=== PATIENT | female | born 1970 | race Caucasian/White ===

== ENCOUNTER 2019-11-08 15:15 | Observation (INO) ==
[2019-11-08] MEDS ORDERED: 0.9 % Sodium Chloride 1,000 ML IVC ONE (15:26)
[2019-11-08] MEDS ORDERED: Ondansetron 4 MG/2 ML VIAL IVP ONE ×2 (15:26→17:19)
[2019-11-08] MEDS ORDERED: *HR* HYDROmorphone (PF) 1 MG/ML SYRINGE IVP STA (15:33)
[2019-11-08 15:43] LABS: Bacteria,Urine Few per hpf (None-Few); Bilirubin,Urine Negative (Negative); Blood,Urine Negative (Negative); Clarity,Urine Clear (Clear); Color,Urine Light-Yellow (Yellow); Glucose,Urine (UA) Normal (Normal); Ketones,Urine Negative (Negative); Leukocyte Esterase,Urine Trace (Negative); Mucus,Urine Few per lpf (None-Few); Nitrite,Urine Negative (Negative); Protein,Urine Negative (Neg-Trace); Specific Gravity,Urine 1.021 (1.010-1.025); Squamous Epithelial Cell,Urine Moderate per hpf (None-Few); Urobilinogen,Urine Normal (Normal); WBC,Urine 0-3 per hpf (0-3)
[2019-11-08 15:53] LABS: Basophils # 0.1 K/mcL (0.0-0.2); Basophils % 0.6 %; Eosinophils # 0.2 K/mcL (0.0-0.6); Eosinophils % 1.5 %; Hematocrit 46.4 % (35.3-44.9); Hemoglobin 14.8 g/dL (11.5-15.4); Immature Granulocytes % 0.3 % (0-4); Lymphocytes % 27.7 %; Mean Corpuscular HGB Conc 31.9 g/dL (31.6-35.5); Mean Corpuscular Hemoglobin 29.1 pg (28.0-33.3); Mean Corpuscular Volume 91.3 fL (83.0-100.0); Mean Platelet Volume 10.3 fL (9.4-12.4); Monocytes # 0.7 K/mcL (0.0-1.3); Monocytes % 6.8 %; Neutrophils # 6.9 K/mcL (1.6-8.9); Platelet Count 222 K/mcL (140-400); Red Blood Count 5.08 M/mcL (3.82-4.97); Red Cell Distribution Width 13.2 % (11.5-14.5); Segmented Neutrophils % 63.1 %; White Blood Count 10.9 K/mcL (4.3-11.1)
[2019-11-08 16:31] LABS: Alanine Aminotransferase 27 Units/L (7-52); Albumin 4.1 g/dL (3.5-5.7); Albumin/Globulin Ratio 1.1 (1.1-2.2); Alkaline Phosphatase 85 Units/L (34-104); Aspartate Amino Transferase 28 Units/L (13-39); BUN/Creatinine Ratio 14 (6-26); Bilirubin,Direct 0.2 mg/dL (0.0-0.2); Bilirubin,Indirect 0.7 mg/dL (0.0-1.0); Bilirubin,Total 0.9 mg/dL (0.3-1.0); Blood Urea Nitrogen 9 mg/dL (6-20); Calcium 9.4 mg/dL (8.6-10.3); Carbon Dioxide 27 mEq/L (23-29); Chloride 102 mEq/L (98-107); Globulin 3.6 g/dL (2.4-3.5); Glucose 114 mg/dL (70-105); Lipase 10 Units/L (11-82); Osmolality,Calculated 282 (280-300); Potassium 4.4 mEq/L (3.5-5.1); Sodium 136 mEq/L (136-145); Total Protein 7.7 g/dL (6.4-8.9); eGFR For African Americans > 60 (> 60); eGFR For Non-African Americans > 60 (> 60)
[2019-11-08] MEDS ORDERED: CefOXitin 1,000 MG VIAL ONE (17:15)
[2019-11-08] MEDS ORDERED: *HR* Promethazine 25 MG/ML VIAL IVP PRN (17:19)
[2019-11-08] MEDS ORDERED: *HR* Meperidine 25 MG/ML SYRINGE IVP PRN (17:19)
[2019-11-08] MEDS ORDERED: *HR* OxyCODONE Immed Rel 5 MG TABLET PO PRN (17:19)
[2019-11-08] MEDS ORDERED: Acetaminophen IV 1,000 MG/100 ML BAG ONE (17:39)
[2019-11-08] MEDS ORDERED: Ondansetron 4 MG/2 ML VIAL ONE (17:57)
[2019-11-08] MEDS ORDERED: *HR* Succinylcholine 200 MG/10 ML VIAL IVP ONE (17:57)
[2019-11-08] MEDS ORDERED: Lidocaine -MPF 2% 2 ML VIAL ONE (17:57)
[2019-11-08] MEDS ORDERED: Dexamethasone 4 MG/ML VIAL ONE (17:57)
[2019-11-08] MEDS ORDERED: *HR* Rocuronium Bromide 50 MG/5 ML VIAL ONE (17:57)
[2019-11-08] MEDS ORDERED: *HR* FentaNYL (PF) 100 MCG/2 ML VIAL ONE (17:58)
[2019-11-08] MEDS ORDERED: *HR* Propofol 200 MG/20 ML VIAL IVP ONE (17:58)
[2019-11-08] MEDS ORDERED: cefOXitin 1,000 MG, 0.9 % Sodium Chloride 1,000 ML IR ONE (18:00)
[2019-11-08] MEDS ORDERED: CefOXitin 2,000 MG VIAL ONE (18:09)
[2019-11-08] MEDS: *HR* HYDROmorphone PF 0.5 MG/0.5 ML SYRINGE IVP PRN ×3 (19:21→19:43)
[2019-11-08] MEDS ORDERED: 0.9 % Sodium Chloride 1,000 ML IVC SCH (20:10)
[2019-11-08] MEDS ORDERED: *HR* OxyCODONE/APAP 5/325 TABLET PO PRN (20:10)
[2019-11-08] MEDS ORDERED: *HR* Metoprolol 5 MG/5 ML VIAL IVP PRN (20:10)
[2019-11-08] MEDS ORDERED: Ondansetron 4 MG/2 ML VIAL IVP PRN (20:10)
[2019-11-09] MEDS: cefOXitin 2,000 MG in Water for inj. (sterile) 20 ML IVP SCH ×2 (00:02→09:01)
[2019-11-09 06:48] VITALS: BP 111/78
[2019-11-09] MEDS ORDERED: *HR* Metformin 500 MG TABLET PO SCH (09:00)
== END 2019-11-09 09:47 | disposition home or self-care (01) ==
LOC: EMEROOARM 15:15 → 3BNU 15:15
PROVIDERS: ADMIT Surgery; ATTEND Surgery

== ENCOUNTER 2020-06-04 06:17 | Observation (INO) ==
[~2020-06-04 06:17] MED LIST: Ringers Solution, Lactated 1,000 ML IVC SCH
[2020-06-04] MEDS ORDERED: CeFAZolin Syr 3,000MG/30 ML 3,000 MG/30 ML SYRINGE IVPB ONE (06:40)
[2020-06-04] MEDS ORDERED: Ondansetron 4 MG/2 ML VIAL IVP PRN ×2 (07:00→15:02)
[2020-06-04] MEDS ORDERED: *HR* HYDROcodone/Acet 5/325 mg TABLET PO PRN ×2 (07:00→15:02)
[2020-06-04] MEDS ORDERED: Lidocaine -MPF 2% 2 ML VIAL ONE (07:47)
[2020-06-04] MEDS ORDERED: Ondansetron 4 MG/2 ML VIAL ONE (07:47)
[2020-06-04] MEDS ORDERED: Dexamethasone 4 MG/ML VIAL ONE (07:47)
[2020-06-04] MEDS ORDERED: *HR* Succinylcholine 200 MG/10 ML VIAL IVP ONE (07:47)
[2020-06-04] MEDS ORDERED: Lidocaine HCL 4 ML Topical Solution (Laryng-O-Jet Kit Sterile Pak) TP ONE (07:47)
[2020-06-04] MEDS ORDERED: *HR* FentaNYL (PF) 100 MCG/2 ML VIAL ONE ×2 (07:50→11:33)
[2020-06-04] MEDS ORDERED: *HR* Propofol 200 MG/20 ML VIAL IVP ONE ×3 (07:50→12:34)
[2020-06-04] MEDS ORDERED: *HR* Remifentanil 1 MG VIAL IVP ONE ×3 (08:00→11:24)
[2020-06-04] MEDS ORDERED: Bacitracin 50,000 UNIT, Polymyxin B Sulfate 500,000 UNIT, Sodium Chloride IRRigation 1,... IR ONE (08:15)
[2020-06-04] MEDS ORDERED: *HR* Midazolam HCl 2 MG/2 ML VIAL ONE (08:38)
[2020-06-04] MEDS ORDERED: *HR* PHENYLEPHRINE 1,000 MCG/10 ML SYRINGE IVP ONE ×2 (09:14→10:38)
[2020-06-04] MEDS ORDERED: EPHEDrine 50 MG/ML VIAL ONE (09:27)
[2020-06-04] MEDS ORDERED: *HR* HYDROMORPHONE 2 MG/ML VIAL ONE (12:14)
[2020-06-04] MEDS: *HR* HYDROmorphone PF 0.5 MG/0.5 ML SYRINGE IVP PRN ×3 (14:17→14:42)
[2020-06-04] MEDS ORDERED: Ringers Solution, Lactated 1,000 ML IVC SCH (15:02)
[2020-06-04] MEDS ORDERED: Naloxone 0.4 MG/ML INJ IVP PRN (15:02)
[2020-06-04] MEDS ORDERED: Acetaminophen 325 MG TABLET PO PRN (15:02)
[2020-06-04] MEDS: *HR* OxyCODONE Immed Rel 5 MG TABLET PO PRN ×2 (15:20→20:05)
[2020-06-04] MEDS: CeFAZolin 2 GM/120 ML BAG IVPB SCH (16:34)
[2020-06-04] MEDS: *HR* Metformin 500 MG TABLET PO SCH (17:18)
[2020-06-05] MEDS: CeFAZolin 2 GM/120 ML BAG IVPB SCH (00:56)
[2020-06-05] MEDS: *HR* OxyCODONE Immed Rel 5 MG TABLET PO PRN ×4 (02:29→21:20)
[2020-06-05] MEDS: *HR* Metformin 500 MG TABLET PO SCH ×2 (08:04→17:07)
[2020-06-05] MEDS: Acetaminophen 325 MG TABLET PO SCH (23:42)
[2020-06-06] MEDS: Acetaminophen 325 MG TABLET PO SCH ×3 (06:26→17:46)
[2020-06-06] MEDS: *HR* OxyCODONE Immed Rel 5 MG TABLET PO PRN ×4 (06:29→21:06)
[2020-06-06] MEDS: *HR* Metformin 500 MG TABLET PO SCH ×2 (08:38→17:46)
[2020-06-07] MEDS: Acetaminophen 325 MG TABLET PO SCH ×2 (00:36→06:54)
[2020-06-07] MEDS: *HR* OxyCODONE Immed Rel 5 MG TABLET PO PRN ×2 (01:32→06:54)
[2020-06-07 07:05] VITALS: BP 106/68
[2020-06-07] MEDS: *HR* Metformin 500 MG TABLET PO SCH (08:31)
== END 2020-06-07 09:48 | disposition home or self-care (01) ==
LOC: 3NENU 06:17 → SAMDAY 06:17 → 3NENU 14:53
PROVIDERS: ADMIT Orthopaedic Surgery Orthopaedic Surgery of the Spine; ATTEND Orthopaedic Surgery Orthopaedic Surgery of the Spine